=== PATIENT | female | born 1970 | race Caucasian/White ===

== ENCOUNTER 2017-03-31 01:42 | Emergency (ER) | payer OTHER ==
[~2017-03-31] VITALS: Ht 167.6 cm; Wt 114.7 kg
[~2017-03-31 01:42] MED LIST: AMOXICILLIN500 M1 PO; ASPIR-LOW81 MG PO; AZITHROMYCIN500 M1 PO; CIPRO500 MG PO; CIPROFLOXACIN500 M1 PO; CLEOCIN150 MG PO; DESYREL100 MG PO; DILAUDID2 MG PO; FLAGYL500 MG PO; FLOVENT 22120 INHALA IH; KEFLEX500 MG PO; LEVAQUIN750 MG PO; LORATADINE10 M2 PO; LYRICA100 MG PO; METHADONE HCL40 MG PO; METHADONE10 MG PO; METHADOSE10 MG/1 ML PO; OMEPRAZOLE20 MG PO; PANTOPRAZOLE SO40 MG PO; PREDNISONE10 MG PO; PREDNISONE20 MG PO; PROTONIX40 MG PO; PROZAC20 MG PO; PROZAC40 MG PO; SINGULAIR10 MG PO; SUCRALFATE1 GM PO; SYMBICORT60 INHALAT IH; SYNTHROID50 MCG PO; VENTOLIN HFA18 GM IH; ZOFRAN4 MG PO
[2017-03-31 02:52] LABS: HEMATOCRIT 43.6 % (36.0-46.0); MCH 29.3 PG (29.0-34.0); MCV 88.8 FL (83-99); MEAN PLAT.VOLUME 10.1 uM^3 (9.5-12.4); PLATELET COUNT 194 K/uL (156-360); RBC DIS.WIDTH-CV 12.3 % (11.8-14.6); RBC DIS.WIDTH-SD 40.1 % (39-53); RED BLOOD COUNT 4.91 M/uL (3.80-5.20)
[2017-03-31 03:04] LABS: CHLORIDE 101 mEq/L (99-109); SODIUM 137 mEq/L (136-147)
[2017-03-31 03:07] LABS: GLUCOSE 174 mg/dL (70-99)
[2017-03-31 03:08] LABS: ANION GAP 9 MEQ/L (2-14)
[2017-03-31 03:09] LABS: TOTAL BILIRUBIN 0.3 mg/dL (0.0-1.0)
[2017-03-31 03:10] LABS: ALKALINE PHOSPHATASE 92 IU/L (3-129); GFR ESTIMATE (CALCULATED) > 59 mL/min/
[2017-03-31 03:11] LABS: UREA NITROGEN (BUN) 11 mg/dL (9-23)
[2017-03-31 03:14] LABS: LIPASE 25 U/L (1.0-51.0)
[2017-03-31 03:40] LABS: ADD MIUA? YES; BILIRUBIN NEGATIVE; BLOOD NEGATIVE; COLOR STRAW ((YELLOW)); GLUCOSE (STRIP) NEGATIVE; KETONES NEGATIVE; LEUKOCYTES TRACE; NITRITE NEGATIVE; PROTEIN (STRIP) NEGATIVE; SPECIFIC GRAVITY 1.005 (1.000-1.030); UROBILINOGEN 0.2 MG/DL (0.2-1.0)
[2017-03-31 03:44] LABS: BACTERIA RARE /HPF; EPITHELIAL CELLS RARE /HPF; MUCUS NONE SEEN /LPF; RED BLOOD CELLS 0-5 /HPF (0-5); UCUL ADDED? NO; WHITE BLOOD CELLS 0-5 /HPF (0-5)
[2017-03-31] MEDS ORDERED: FLAGYL500 MG PO (03:52)
[2017-03-31] MEDS ORDERED: CIPRO500 MG PO (03:52)
[2017-03-31 04:08] VITALS: BP 108/83
== END 2017-03-31 04:09 | disposition home or self-care (01) ==
LOC: EME 01:42
PROVIDERS: Emergency Medicine
DX: K57.92 Diverticulitis of intestine, part unspecified, without perforation or abscess without bleeding (principal); E11.9 Type 2 diabetes mellitus without complications; J44.9 Chronic obstructive pulmonary disease, unspecified; F17.200 Nicotine dependence, unspecified, uncomplicated
CPT/HCPCS: 74177; 80053; 81003; 83605; 83690; 85027; 93005; 99281; 99284; J2270; J2405

== ENCOUNTER 2017-05-15 15:20 | Observation (INO) | payer OTHER ==
[~2017-05-15] VITALS: Ht 165.1 cm; Wt 115.4 kg
[2017-05-15 15:57] LABS: HEMATOCRIT 47.1 % (36.0-46.0); MCH 29.5 PG (29.0-34.0); MCHC 33.3 G/DL (30.0-36.0); MCV 88.5 FL (83-99); MEAN PLAT.VOLUME 10.4 uM^3 (9.5-12.4); PLATELET COUNT 196 K/uL (156-360); RBC DIS.WIDTH-CV 12.4 % (11.8-14.6); RBC DIS.WIDTH-SD 39.8 % (39-53); RED BLOOD COUNT 5.32 M/uL (3.80-5.20)
[2017-05-15 16:05] LABS: CHLORIDE 104 mEq/L (99-109); POTASSIUM 4.1 mEq/L (3.7-5.4); SODIUM 140 mEq/L (136-147)
[2017-05-15 16:07] LABS: GLUCOSE 124 mg/dL (70-99)
[2017-05-15 16:09] LABS: ANION GAP 7 MEQ/L (2-14)
[2017-05-15 16:11] LABS: GFR ESTIMATE (CALCULATED) > 59 mL/min/
[2017-05-15 16:12] LABS: UREA NITROGEN (BUN) 7 mg/dL (9-23)
[2017-05-15 16:17] LABS: TROP-I INTERPRETATION NEGATIVE; TROPONIN-I 0.01 ng/mL (0.0-0.30)
[2017-05-15] MEDS ORDERED: BENTYL20 MG PO (17:23)
[2017-05-15 19:25] VITALS: BP 128/64
[2017-05-15 21:57] LABS: TROP-I INTERPRETATION NEGATIVE; TROPONIN-I 0.02 ng/mL (0.0-0.30)
[2017-05-16 06:25] LABS: TROP-I INTERPRETATION NEGATIVE; TROPONIN-I < 0.01 ng/mL (0.0-0.30)
[2017-05-16 07:38] VITALS: BP 124/69
[2017-05-16 12:07] VITALS: BP 131/78
== END 2017-05-16 15:11 | disposition home or self-care (01) ==
LOC: EME 15:20 → 5WEST 16:57 → EDOF 16:57 → ENRESERV 17:00 → 5WEST 19:22 → ENPENDDIS 05-16 → 5WEST 05-16 15:11
PROVIDERS: Internal Medicine; Physician Assistant
DX: R07.89 Other chest pain (principal); F17.200 Nicotine dependence, unspecified, uncomplicated; G89.4 Chronic pain syndrome; Z79.891 Long term (current) use of opiate analgesic; J44.9 Chronic obstructive pulmonary disease, unspecified; E11.9 Type 2 diabetes mellitus without complications; E66.9 Obesity, unspecified; Z90.49 Acquired absence of other specified parts of digestive tract; Z82.49 Family history of ischemic heart disease and other diseases of the circulatory system; Z80.0 Family history of malignant neoplasm of digestive organs; Z88.2 Allergy status to sulfonamides
CPT/HCPCS: 71020; 80048; 84484; 85027; 85379; 93005; 94640; 94640 76; 94799; 99202; 99281; 99285; C9113; G0378; J3010; S0028

== ENCOUNTER → 2017-08-10 | Outpatient (CLI) | payer OTHER ==
[~2017-08-10] MED LIST changes: +BENTYL20 MG PO
== END | disposition home or self-care (01) ==
LOC: EKG 12:57
DX: I07.1 Rheumatic tricuspid insufficiency (principal); I27.20 Pulmonary hypertension, unspecified; R94.31 Abnormal electrocardiogram [ECG] [EKG]
CPT/HCPCS: 93306